=== PATIENT | male | born 1980 | race Caucasian/White ===

== ENCOUNTER 2016-09-14 09:11 | Outpatient (RCR) | payer OTHER ==
--- OUTSIDE RECORDS SUMMARY | 2016-09-12 11:38 | XMS REPORT | Continuity of Care Document ---
Author Author [facility] Organization [facility] Address Unknown Phone Unavailable Care Team Providers Care Python Django Developer Name Role Phone SAL CLEMENS MD PCP Insurance Providers Payer Name Policy Number Subscriber Name Relationship Unknown Advance Directives Directive Response Recorded Date/Time Advance Directives No 04/14/15 9:28am Resuscitation Status Full Code 04/14/15 9:28am Problems No known problems or medical conditions. Medications Medication Dose Route Sig Days/Qty Instructions Order Date Discontinued Date Status Amlodipine Bes/Olmesartan Med 1 Tab PO DAILY 04/14/15 Active Acetaminophen/Hydrocodone Bitart 1 Ea PO Q 4 - 6 HRS PRN 20 Qty Active Tamsulosin HCl 0.4 Mg PO TWICE A DAY 6 Qty 04/14/15 Active Ciprofloxacin HCl 500 Mg PO TWICE A DAY 10 Qty 04/14/15 Active Social History Social History Problem Response Recorded Date/Time Alcohol Use Denies Use 04/14/2015 9:28am Recreational Drug Use No 04/14/2015 9:28am Recent Foreign Travel No 04/14/2015 9:26am Recent Infectious Disease Exposure No 04/14/2015 9:26am Smoking Status Never a Smoker 04/14/2015 9:28am Query Response Start Date Stop Date Smoking Status Never a Smoker Hospital Discharge Instructions No hospital discharge instructions. Plan of Care No plan of care. Functional Status No functional status results. Allergies, Adverse Reactions, Alerts Allergen Type Severity Reaction Status Last Updated Bupropion Allergy Severe SWELLING Active 04/14/15 milk ([id number]) Allergy Severe SWELLING, REDNESS Active 04/14/15 Immunizations No immunization records. Vital Signs Acute Vital Signs Vital Response Date/Time Temperature (Fahrenheit) 98.4 degrees F (97.6 - 99.5) Temperature (Calculated Celsius) 36.82233 degrees C (36.4 - 37.5) Temperature Source Temporal Pulse Rate (adult) 80 bpm (60 - 90) Respiratory Rate 16 bpm (12 - 24) O2 Sat by Pulse Oximetry 96 % (88 - 100) Blood Pressure 168/120 mm Hg Pain Pain Intensity 8 Height (Feet) 6 feet Height (Calculated Centimeters) 182.561421 cm Weight (Pounds) 360 pounds Weight (Calculated Kilograms) 163.334492 kilograms Height 6 ft 0 in Weight 360 lb Body Mass Index 48.8 kg/m^2 Results Laboratory Results Test Name Result Units Flags Reference Collection Date/Time Result Date/ Time Comments White Blood Count 8.9 10^3/uL 4.3-11.0 04/14/2015 9:40am 04/14/2015 9: 48am Red Blood Count 5.37 10^6/uL 4.35-5.85 04/14/2015 9:40am 04/14/2015 9: 48am Hemoglobin 15.8 G/DL 13.3-17.7 04/14/2015 9:40am 04/14/2015 9:48am Hematocrit 47 % 40-54 04/14/2015 9:40am 04/14/2015 9:48am Mean Corpuscular Volume 87 FL 80-99 04/14/2015 9:40am 04/14/2015 9: 48am Mean Corpuscular Hemoglobin 29 PG 25-34 04/14/2015 9:40am 04/14/2015 9: 48am Mean Corpuscular Hemoglobin Concent 34 G/DL 32-36 04/14/2015 9:40am 9:48am Red Cell Distribution Width 12.6 % 10.0-14.5 04/14/2015 9:40am 2014 9:48am Platelet Count 203 10^3/uL 130-400 04/14/2015 9:40am 04/14/2015 9:48am Mean Platelet Volume 11.3 FL H 7.4-10.4 04/14/2015 9:40am 04/14/2015 9: 48am Neutrophils (%) (Auto) 73 % 42-75 04/14/2015 9:40am 04/14/2015 9:48am Lymphocytes (%) (Auto) 14 % 12-44 04/14/2015 9:40am 04/14/2015 9:48am Monocytes (%) (Auto) 11 % 0-12 04/14/2015 9:40am 04/14/2015 9:48am Eosinophils (%) (Auto) 2 % 0-10 04/14/2015 9:40am 04/14/2015 9:48am Basophils (%) (Auto) 0 % 0-10 04/14/2015 9:4004/14/2015 9:48am Neutrophils # (Auto) 6.5 X 10^3 1.8-7.8 04/14/2015 9:40am 04/14/2015 9: 48am Lymphocytes # (Auto) 1.2 X 10^3 1.0-4.0 04/14/2015 9:4004/14/2015 9: 48am Monocytes # (Auto) 1.0 X 10^3 0.0-1.0 04/14/2015 9:40am 04/14/2015 9: 48am Eosinophils # (Auto) 0.1 10^3/uL 0.0-0.3 04/14/2015 9:40am 04/14/2015 9 :48am Basophils # (Auto) 0.0 10^3/uL 0.0-0.1 04/14/2015 9:4004/14/2015 9: 48am Urine Color STRAW 04/14/2015 9:35am 04/14/2015 10:09am --- 1008 --- UR COL previously reported as: AUGUST * Urine Clarity CLEAR 04/14/2015 9:3504/14/2015 10:09am --- 1008 --- UR CLAR previously reported as: SLIGHTLY CLOUDY Urine pH 6 5-9 04/14/2015 9:3504/14/2015 10:03am Urine Specific [place] 1.005 * 1.016-1.022 04/14/2015 9:35am 2014 10:03am Urine Protein NEGATIVE NEGATIVE 04/14/2015 9:35am 04/14/2015 10:03am Urine Glucose (UA) NEGATIVE NEGATIVE 04/14/2015 9:35am 04/14/2015 10: 03am Urine RBC (Auto) 3+ * NEGATIVE 04/14/2015 9:35am 04/14/2015 10:03am Urine Ketones NEGATIVE NEGATIVE 04/14/2015 9:35am 04/14/2015 10:03am Urine Nitrite NEGATIVE NEGATIVE 04/14/2015 9:35am 04/14/2015 10:03am Urine Bilirubin NEGATIVE NEGATIVE 04/14/2015 9:35am 04/14/2015 10: 03am Urine Urobilinogen NORMAL MG/DL NORMAL 04/14/2015 9:35am 04/14/2015 10: 03am Urine Leukocyte Esterase NEGATIVE NEGATIVE 04/14/2015 9:35am 2014 10:03am Urine RBC NONE /HPF 04/14/2015 9:35am 04/14/2015 10:03am Urine WBC RARE /HPF 04/14/2015 9:35am 04/14/2015 10:03am Urine Bacteria NEGATIVE /HPF 04/14/2015 9:35am 04/14/2015 10:03am Urine Squamous Epithelial Cells RARE /HPF 04/14/2015 9:35am 2014 10:03am Urine Crystals NONE /LPF 04/14/2015 9:35am 04/14/2015 10:03am Urine Casts NONE /LPF 04/14/2015 9:35am 04/14/2015 10:03am Urine Mucus NEGATIVE /LPF 04/14/2015 9:35am 04/14/2015 10:03am Urine Culture Indicated NO 04/14/2015 9:35am 04/14/2015 10:03am Sodium Level 137 MMOL/L 135-145 04/14/2015 9:40am 04/14/2015 10:10am Potassium Level 4.1 MMOL/L 3.6-5.0 04/14/2015 9:40am 04/14/2015 10: 10am Chloride Level 104 MMOL/L 98-107 04/14/2015 9:40am 04/14/2015 10:10am Carbon Dioxide Level 23 MMOL/L 21-32 04/14/2015 9:40am 04/14/2015 10: 10am Blood Urea Nitrogen 12 MG/DL 7-18 04/14/2015 9:40am 04/14/2015 10:10am Creatinine 1.21 MG/DL 0.60-1.30 04/14/2015 9:40am 04/14/2015 10:10am BUN/Creatinine Ratio 10 04/14/2015 9:4004/14/2015 10:10am Estimat Glomerular Filtration Rate > 60 04/14/2015 9:402014 10:10am GFR INTERPRETIVE DATA UNITS FOR ESTIMATED GFR (eGFR): mL/min/1.73 M2 REFERENCE RANGE FOR ESTIMATED GFR (eGFR) eGFR NORMAL eGFR >60 MODERATELY DECREASED eGFR 30-59 SEVERLY DECREASED eGFR 15-29 KIDNEY FAILURE <15 (OR DIALYSIS) Glucose Level 102 MG/DL 70-105 04/14/2015 9:40am 04/14/2015 10:10am Calcium Level 9.6 MG/DL 8.5-10.1 04/14/2015 9:4004/14/2015 10:10am Total Bilirubin 2.1 MG/DL H 0.1-1.0 04/14/2015 9:4004/14/2015 10:10am Alkaline Phosphatase 64 U/L 40-136 04/14/2015 9:40am 04/14/2015 10: 10am Aspartate Amino Transf (AST/SGOT) 22 U/L 5-34 04/14/2015 9:40am 2014 10:10am Alanine Aminotransferase (ALT/SGPT) 37 U/L 0-55 04/14/2015 9:4004/14 10:10am Total Protein 7.5 G/DL 6.4-8.2 04/14/2015 9:4004/14/2015 10:10am Albumin 4.3 G/DL 3.2-4.5 04/14/2015 9:4004/14/2015 10:10am Lipase 10 U/L 8-78 04/14/2015 9:40am 04/14/2015 10:10am Procedures No known history of procedures. Encounters Encounter Location Date/Time Registered Emergency Room Via [facility] 04/14/15 9:14am Recent Diagnosis
--- NOTE | 2016-09-12 14:30 | Diagnostic Imaging Report ---
KUB. INDICATION: Left-sided stones. FINDINGS: No definitive stone is seen by KUB. Patient appears to have large body habitus, and there is a small/ moderate amount of fecal material in the colon which are potentially limiting factors. Small calcification in the left side of the pelvis is likely a phlebolith. IMPRESSION: No definitive urinary tract stone. Dictated by: Dictated on workstation # [id number]
[~2016-09-14 09:11] MED LIST: AMLO1TAB65 PO; CIPR500T78 PO; HYDR-3720 PO; LEVO500T2 PO; PHEN200T27 PO; TMSL.4C PO
[2016-09-17 18:52] LABS: STONE RISK AMMONIUM 28 mEq/24hr (14-62); STONE RISK CALCIUM 352 mg/day (< 250); STONE RISK CITRATE 440 mg/day (> 320); STONE RISK CREATININE 2220 mg/day (800-2000); STONE RISK MAGNESIUM 99 mg/day (> 60); STONE RISK OXALATE 43 mg/day (< 45); STONE RISK PH 6.9 (5.5-7.0); STONE RISK PHOSPHOROUS 979 mg/day (< 1100); STONE RISK POTASSIUM 41 mEq/24hr (19-135); STONE RISK SODIUM 283 mEq/24hr (< 200); STONE RISK SODIUM URATES 3.84 (< 2.00); STONE RISK STRUVITE 5.67 (< 75.00); STONE RISK SULFITE 15 mmol/day (< 30); STONE RISK TOTAL VOLUME 2.11 L/day (> 2.00); STONE RISK URIC ACID 734 mg/day (< 700); STONE RISK URIC ACID SAT 0.22 (< 2.00)
== END 2016-12-11 | disposition home or self-care (01) ==
LOC: RAD 09:11
PROVIDERS: ATTEND Urology
DX: N20.9 Urinary calculus, unspecified (principal)
CPT/HCPCS: 36415; 74000; 82140; 82340; 82507; 82570; 83735; 83945; 83986; 84105; 84133; 84300; 84392; 84560

== ENCOUNTER → 2020-11-23 | Outpatient (CLI) | payer OTHER ==
[~2020-11-23] MED LIST changes: +BAMLANIVIMAB (NON FORM) 700 MG in NS (IVPB) 250 ML IV ONE; +EPINEPHrine INJECTION 1 MG/ML AMP IM PRN; +diphenhydrAMINE 50 MG/ML INJ (BENADRYL) IV PRN
[2020-11-23 12:59] VITALS: BP 148/92
[2020-11-23 14:11] VITALS: BP 119/91
== END ==
LOC: INFUSION 12:06
PROVIDERS: ATTEND Nurse Practitioner Family
DX: U07.1 COVID-19 (principal)